=== PATIENT | male | born 1960 | race Caucasian/White ===

== ENCOUNTER 2022-09-21 20:07 | Inpatient (IN) | payer OTHER, MEDICAID ==
[~2022-09-21] VITALS: Ht 177.8 cm; Wt 77.6 kg
--- NOTE | 2022-09-21 20:07 | NUR ---
PT ESVIN ALS. TAKEN TO BED 10
[2022-09-21 20:13] VITALS: BP 135/72
[2022-09-21 20:20] VITALS: BP 135/72
--- NOTE | 2022-09-21 20:57 | NUR ---
X-Ray at bedside.
[2022-09-21 21:28] LABS: BASOPHILS % (AUTO) 0.3 % (0.0-2.0); EOSINOPHILS # (AUTO) 0.1 K/uL (0-0.4); EOSINOPHILS % (AUTO) 0.7 % (0.0-4.0); HEMATOCRIT 23.8 % (36-52); HEMOGLOBIN 7.7 g/dL (12.0-18.0); LYMPHOCYTES # (AUTO) 0.7 K/uL (2.0-11.5); LYMPHOCYTES % (AUTO) 5.4 % (20.5-51.1); MEAN CORPUSCULAR HEMOGLOBIN 30 pg (27-31); MEAN CORPUSCULAR HGB CONC 32 g/dL (33-37); MEAN CORPUSCULAR VOLUME 93.9 fL (80-94); MONOCYTES # (AUTO) 0.5 K/uL (0.8-1.0); NEUTROPHILS # (AUTO) 11.3 K/uL (1.8-7.7); NEUTROPHILS % (AUTO) 89.6 % (42.2-75.2); PLATELET COUNT (AUTO) 335 K/uL (140-450); RED BLOOD CELL COUNT(AUTO) 2.54 MIL/uL (4.20-6.10); RED CELL DISTRIBUTION WIDTH 16.4 % (11.6-13.7); WHITE BLOOD COUNT (AUTO) 12.6 K/uL (4.8-10.8)
[2022-09-21 21:42] LABS: ALBUMIN 1.6 g/dL (3.4-5.0); ANION GAP 14.1 (8-16); CARBON DIOXIDE 31.9 mmol/L (21-32); CREATININE 3.1 mg/dL (0.6-1.3); TOTAL BILIRUBIN 0.3 mg/dL (0.0-1.0)
[2022-09-21] MEDS ORDERED: CEFEPIME 1,000 MG in DEXTROSE 5% 50 ML IV ONE (21:50)
[2022-09-21] MEDS ORDERED: NACL 0.9% 1,000 ML IV ONE (21:50)
[2022-09-21] MEDS ORDERED: CEFEPIME 1,000 MG VIAL ONE (22:03)
--- NOTE | 2022-09-21 22:34 | NUR ---
YU COLLECTED AND SENT TO LAB
[2022-09-21] MEDS ORDERED: LORA-476 PO (22:52)
[2022-09-21] MEDS ORDERED: ARGI4.5P3 PO (22:52)
[2022-09-21] MEDS ORDERED: ACET-2619 GT (22:52)
--- NOTE | 2022-09-21 22:53 | NUR ---
PT CHANGED. MODERATE BROWN SOFT STOOL NOTED. NOTED PRESSURE WOUND TO COCCYX. PICTURES TAKEN.
[2022-09-21] MEDS ORDERED: [UNRECOGNIZED DRUG - CODE] OP (22:59)
[2022-09-21] MEDS ORDERED: ALPOS OP (22:59)
[2022-09-21] MEDS ORDERED: EPOE10004 IJ (22:59)
[2022-09-21] MEDS ORDERED: FERR75LI22 PO (23:00)
[2022-09-21] MEDS ORDERED: ATRN INH (23:11)
[2022-09-21] MEDS ORDERED: GLUC1VIA (23:11)
[2022-09-21] MEDS ORDERED: PRO5 PO (23:11)
[2022-09-21] MEDS ORDERED: LEVA0.6335 INH (23:11)
[2022-09-21] MEDS ORDERED: ACET-8905 PO (23:11)
[2022-09-21] MEDS ORDERED: SLIDE SUBQ (23:11)
[2022-09-21] MEDS ORDERED: INSU100V19 SQ (23:11)
[2022-09-21] MEDS ORDERED: ASCO500T95 PO (23:11)
[2022-09-21] MEDS ORDERED: MULT-1469 PO (23:11)
--- NOTE | 2022-09-21 23:27 | NUR ---
REPORT CALLED TO TY WAGNER WITH FULL RETURNED VERBAL UNDERSTANDING. PT GOING TO 108 [address]
--- NOTE | 2022-09-21 23:40 | NUR ---
PT TRANSPORTED VIA GURNEY FROM ER. PT IS CURRENTLY SLEEPING COMFORTABLY. EASILY AROUSABLE. PT IS ON TRACH TO VENT: A/C PRVC 40,450,16,6. PT HAS WOUND ON SACRAL. RIGHT BKA. 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 PT IS SATING 100%. PT HAS 22 GAUGE ON LEFT HAND SALINE LOCK. SAFETY MEASURES TAKEN. WILL CONTINUE TO MONITOR THE PT.
[2022-09-22] VITALS: BP 131/70
--- NOTE | 2022-09-22 00:03 | NUR ---
PT WAS TRANSPORTED FROM ER TO TELE VIA CARESCAPE VENT. PT TOLERATED TRANSPORT WELL. VENT PLUGGED IN RED OUTLET. AIRWAY IS PATENT, SUCTION SMALL YELLOW THICK SECRETIONS FROM TRACH. SPO2 100%
[2022-09-22 04:00] VITALS: BP 137/68
[2022-09-22] MEDS ORDERED: PIPERACILLIN/TAZOBACTAM 3.375 GM VIAL IV ONE (04:06)
[2022-09-22] MEDS: PIPERACILLIN/TAZOBACTAM 3.375 GM in DEXTROSE 5% 50 ML IV SCH ×3 (04:18→20:45)
--- NOTE | 2022-09-22 04:18 | NUR ---
SCHEDULE MEDICATION GIVEN. NO ADVERSE REACTION NOTED. PT NOT IN ANY DISTRESS.
--- NOTE | 2022-09-22 07:14 | NUR ---
ENDORSED PT TO DAY SHIFT RN FOR CONTINUITY OF CARE. PT IS STABLE.
--- NOTE | 2022-09-22 07:15 | NUR ---
receive the patient from the restaurant shift leader rn in room 108B aox1 non verbal with admitting diagnosis of sepsis . will continue to monitor .
[2022-09-22 08:00] VITALS: BP 127/53
[2022-09-22] MEDS ORDERED: LORazepam 2 MG/ML VIAL IVP PRN (08:00)
[2022-09-22] MEDS ORDERED: ZOLPIDEM 10 MG TAB PO PRN (08:00)
[2022-09-22] MEDS ORDERED: ONDANSETRON 4 MG/2 ML VIAL IVP PRN (08:00)
[2022-09-22] MEDS ORDERED: DOCUSATE SODIUM 100 MG GELCAP PO PRN (08:00)
[2022-09-22] MEDS ORDERED: MAG SULF 2000 MG/WATER PREMIX 50 ML IV PRN (08:00)
[2022-09-22] MEDS ORDERED: POTASSIUM CHLORIDE 10 MEQ TABER PO PRN (08:00)
[2022-09-22] MEDS ORDERED: ALBUTEROL 0.083% 2.5 MG/3 ML NEBU INH PRN (08:05)
--- NOTE | 2022-09-22 08:20 | NUR ---
the son came . gave the son an update regarding the patient plan of care
--- NOTE | 2022-09-22 08:54 | NUR ---
PATIENT HAS BEEN SCREENED AND CATEGORIZED HIGH NUTRITION RISK. PATIENT WILL BE SEEN WITHIN 1-2 DAYS OF ADMISSION. FNS REFERRAL RECEIVED FOR G-TUBE/OPEN WOUNDS ON 09/22/22. REVIEWED BY FLAQUITA CARREON RD
[2022-09-22 12:00] VITALS: BP 133/53
--- NOTE | 2022-09-22 12:14 | NUR ---
assess the sacral wound with Emily family specialist together with TYLER mensah. enter orders alos . noted and carried out
--- NOTE | 2022-09-22 12:27 | NUR ---
WOUND CARE EVALUATION NOTE: SKIN ASSESSMENT DONE WITH PRIMARY KRISTY TONY ON THIS 62 Y/O PT ADMITTED WITH INITIAL DX AMS. PAST MEDICAL HX INCLUDES HTN, CHF, TRACH, CHRONIC PRESSURE ULCER WOUND, G-TUBE. ALL ABOVE INFORMATION OBTAINED FROM ADMISSION H&P. PT IS AWAKE. SKIN IS WARM AND DRY, LEFT ELBOW HEALED SCAR TISSUE. [place] HEALED SCAR TISSUE. RIGHT BKA STUMP SKIN INTACT. LEFT FOOT PARTIAL AMPUTATION, HEALED SCAR. INCONTINENT OF BOWEL X1 DURING ASSESSMENT. PLAN OF CARE DISCUSSED WITH PRIMARY KRISTY TONY. INTEGUMENTARY: -ORAL MEMBRANE PINK INTACT, LIPS, CHEEKS SKIN DRY, NO OPEN WOUNDS -TRACH SITE KAREN STOMA SKIN DRY AND CLEAN. SKIN INTACT. -GT SITE KAREN STOMA WITH SKIN INTACT. -ABDOMEN DISTENDED, SOFT. -PRESSURE ULCER INJURY STAGE 4 TO SACROCOCCYX 8X4X1.5CM, UNDERMINING 3 OCLOCK 0.5CM AND 9 OCLOCK 1.2CM. WOUND BED 100% RED GRANULATION TISSUE, MUSCLE OBSERVED. WOUND EDGE FLAT, KAREN-WOUND SKIN MOIST AND PINK.SMALL AMOUNT SEROUSSANGENOUS DRAINAGE, NO ODOR, PAIN 0/10. RECOMMENDATIONS: -APPLY HYDRAGUARD TO R/L GROINS EXTENDED TO KAREN-ANAL BID AND PRN IF SOILING - CLEANSE SACRALCOCCYX WITH WOUND CLEANSING SOLUTION PAT DRY AND APPLY ALGINATE DRESSING COVER WITH ABD PAD DRESSING SECURE WITH TAPE QD AND PRN IF SOILING -APPLY FOAM DRESSING TO ELBOWS,HIPS AND STUMPS Q3 DAYS AND PRN IF SOILING PREVENTION -POSITIONING: TURN AND REPOSITION PATIENT Q 2H OR SOONER USE PILLOWS TO KEEP BONY PROMINENCES FROM DIRECT CONTACT WITH SURFACES USE REPOSITIONING WEDGES TO PROVIDE 30-DEGREE ANGLE FOR SIDE LYING POSITIONS OFFLOADING OR FOAM DRESSING TO ALL TUBING TO PREVENT MEDICAL DEVICES RELATED PRESSURE INJURY -RE-EVALUATING AND MANAGING INCONTINENCE MONITOR SKIN CONDITION DURING POSITION CHANGE DO NOT MASSAGE REDNESS, BONY PROMINENCES FREQUENT KAREN-CARE AND PROVIDE BARRIER CREAMS PRN IF SOILING MOISTURE CONTROL BY OFFER BED CAPONE/URINAL /ABSORBENT PAD TO WICK AND HOLD MOISTURE, KEEP SKIN DRY AND PROTECT FROM FRICTION -MANAGE FRICTION/SHEAR/MOBILITY KEEP HOB AT THE LOWEST LEVEL OF ELEVATION NO MORE THAN 30 DEGREES UNLESS OTHERWISE CONTRAINDICATED USE LIFT SHEET OR TRANSFER DEVICE TO MOVE PATIENT AND PREVENT LATERAL SHEER. CONSIDER TRAPEZE IF APPROPRIATE PROTECT HEELS, ELBOWS BONY PROMINENCES WITH SKIN BERRIES OR FOAM DRESSING IF EXPOSED TO FRICTION OFFLOAD BILATERAL HEELS BY PLACING PILLOWS UNDER CALVES AT ALL TIMES, UNLESS OTHERWISE CONTRAINDICATED -PRESSURE REDISTRIBUTION SURFACE THERAPY SARAH ISOFLEX MARY GRACE MATTRESS -NUTRITION: PLEASE FOLLOW RD RECOMMENDATIONS AND OFFER NUTRITION SUPPLEMENTS IF ORDERED. PLEASE CONTACT WOUND CARE NURSE FOR ANY QUESTION AND CHANGE OF WOUND CONDITION.
[2022-09-22] MEDS ORDERED: FOAM DRESSING TP PRN (13:30)
[2022-09-22] MEDS ORDERED: ALGINATE DRESSING MC PRN (13:30)
[2022-09-22] MEDS: HYDRAGUARD CREAM TP SCH (15:09)
[2022-09-22] MEDS: FOAM DRESSING TP SCH (15:09)
--- NOTE | 2022-09-22 15:58 | NUR ---
DC PLANNING ASSESSMENT COMPLETE PLEASE REFER TO ASSESSMENT FOR ADDITIONAL DETAILS MARQUEZ ROBERSON DC PLAN IS FOR PT TO RETURN [facility] WHEN MEDICALLY STABLE Addendum: 09/22/22 at 1558 by Hilaria ARMANDO Amended: Links added.
[2022-09-22] MEDS: ACETAMINOPHEN 325 MG TAB PO PRN (16:27)
--- NOTE | 2022-09-22 16:30 | NUR ---
patient has a temperature 101.1 . acetaminophen was given . cooling measures will also be applied . will continue to monitor .
--- NOTE | 2022-09-22 17:05 | NUR ---
09/22/22 RD INITIAL ASSESSMENT COMPLETED PLEASE REFER TO NUTRITION ASSESSMENT UNDER CARE ACTIVITY FOR ESTIMATED NUTRITIONAL NEEDS. 1. MONITOR NPO STATUS 2. WHEN/IF MEDICALLY APPROPRIATE TO START TF, RECOMMEND NEPRO 1.8 AT GOAL RATE 50 ML/HR, FWF 150 ML Q4H TOLERATED - PROVIDES 1200 ML TOTAL VOLUME, 2160 KCAL, 97 GM PROTEIN AND 1772 ML FREE WATER DAILY MEETING 96% ESTIMATED KCAL NEEDS AND 100% ESTIMATED PROTEIN NEEDS; ADEQUATE - START TF AT 2O ML/HR INCREASE BY 2O ML Q4H UNTIL GOAL IS REACHED TOLERATED 3. MONITOR GI SYMPTOMS, GASTRIC RESIDUALS AND NUTRITION RELATED LAB VALUES 4. CONSULT RD PRN 5. RD TO FOLLOW-UP 2-3 DAYS, HIGH RISK REVIEWED BY FLAQUITA CARREON RD
[2022-09-22] MEDS: EPOETIN ALFA-EPBX 4,000 UNITS/ML VIAL SUBQ SCH (18:32)
--- NOTE | 2022-09-22 19:03 | NUR ---
will endorse to nurse office rn for continuity of care for crdiac , pulmonary consult , monitor electrolytes , and antibiotics
--- NOTE | 2022-09-22 19:30 | NUR ---
RECEIVED REPORT FROM DAY SHIFT RN FOR CONTINUITY OF CARE. PT IS RESTING IN BED NOT IN ANY DISTRESS. PT IS TRACH TO VENT SETTIN, 450,16,6. SATING 97%. PT HAS 22 GAUGE ON LEFT HAND SALINE LOCK. PT HAS GTUBE AND NPO AT THIS TIME. SAFETY MEASURES TAKEN. WILL CONTINUE TO MONITOR THE PT.
[2022-09-22 20:00] VITALS: BP 126/69
[2022-09-23] VITALS: BP 114/68
--- NOTE | 2022-09-23 00:30 | NUR ---
PT WAS CLEANED AND CHANGED. TOLERATED IT WELL. WILL CONTINUE TO MONITOR.
[2022-09-23] MEDS: HYDRAGUARD CREAM TP SCH ×2 (01:19→12:16)
[2022-09-23 04:00] VITALS: BP 150/76
[2022-09-23] MEDS: PIPERACILLIN/TAZOBACTAM 3.375 GM in DEXTROSE 5% 50 ML IV SCH ×3 (04:23→20:26)
[2022-09-23 07:14] LABS: BASOPHILS # (AUTO) 0.1 K/uL (0.00-0.22); BASOPHILS % (AUTO) 0.7 % (0.0-2.0); EOSINOPHILS # (AUTO) 0.3 K/uL (0-0.4); EOSINOPHILS % (AUTO) 3.5 % (0.0-4.0); HEMATOCRIT 23.8 % (36-52); HEMOGLOBIN 7.7 g/dL (12.0-18.0); LYMPHOCYTES # (AUTO) 1.3 K/uL (2.0-11.5); LYMPHOCYTES % (AUTO) 17.2 % (20.5-51.1); MEAN CORPUSCULAR HEMOGLOBIN 31 pg (27-31); MEAN CORPUSCULAR HGB CONC 32 g/dL (33-37); MEAN CORPUSCULAR VOLUME 95.2 fL (80-94); MONOCYTES # (AUTO) 0.4 K/uL (0.8-1.0); MONOCYTES % (AUTO) 5.5 % (1.7-9.3); NEUTROPHILS # (AUTO) 5.6 K/uL (1.8-7.7); NEUTROPHILS % (AUTO) 73.1 % (42.2-75.2); PLATELET COUNT (AUTO) 304 K/uL (140-450); RED CELL DISTRIBUTION WIDTH 16.5 % (11.6-13.7); WHITE BLOOD COUNT (AUTO) 7.7 K/uL (4.8-10.8)
--- NOTE | 2022-09-23 07:15 | NUR ---
ENDORSED PT TO DAY SHIFT RN FOR CONTINUITY OF CARE. PT IS STABLE.
--- NOTE | 2022-09-23 07:27 | NUR ---
receive the patinet from the blow pit operator mariama Luna in rm 108B aox1 non verbal . with admitting diagnosis of sepsis . still for antibiotics therapy . wound management . will continue to monitor
[2022-09-23 07:29] LABS: ANION GAP 17.6 (8-16); CARBON DIOXIDE 28.7 mmol/L (21-32); CREATININE 3.7 mg/dL (0.6-1.3); POTASSIUM 4.3 mmol/L (3.5-5.1)
[2022-09-23 08:00] VITALS: BP 139/71
--- NOTE | 2022-09-23 10:26 | NUR ---
the son came and made a visit to the patient . requested for the respiratory therapist .
[2022-09-23 12:00] VITALS: BP 143/72
[2022-09-23] MEDS: ALGINATE DRESSING MC SCH (12:15)
--- NOTE | 2022-09-23 15:31 | NUR ---
SENIOR OFFICE ASSISTANT SPOKE WITH THE PATIENTS BROTHER AND SON AT BEDSIDE REGARDING REQUEST FOR TRANSFER TO [facility]. THE PATIENT HAS BEEN AT [place] IN THE PAST UNDER THE CARE OF HIS PCP RIMA BROWN. RE-ITERATED PROCESS FOR TRANSFER INCLUDING FAMILY RESPONSIBILITY FOR TRANSPORT, FAMILY WANT TO MOVE AHEAD WITH ARRANGEMENTS. SPOKE WITH DR LAUGHLIN, ORDER RECEIVED, CLINICALS AND ORDER FAXED TO THE [facility]. Addendum: 09/23/22 at 1701 by Mary Jo Li CM SPOKE WITH DELLA AT [facility], SHE WILL REACH OUT TO DR RIMA BROWN TO CONFIRM THAT HE'S ACCEPTING THE PATIENT. TRACH/VENT PATIENTS REQUIRE ICU LOC AT [facility], NO ICU BEDS AT THIS TIME. [facility] UNABLE TO ACCEPT UNTIL AUTHORIZATION FROM PATIENTS INSURANCE IS RECEIVED. Addendum: 09/24/22 at 1021 by Mary Jo Li CM SENIOR OFFICE ASSISTANT FAXED CLINICAL PACKET TO [facility] FOR REVIEW FOR AUTHORIZATION TO TRANSFER TO [facility] PER FAMILY REQUEST. FOLLOWED UP WITH DELLA AT [facility] WHO STATES AUTHORIZATION IS NEEDED BEFORE FACILITY CAN ACCEPT THE PATIENT. Addendum: 09/24/22 at 1444 by Mary Jo Li SENIOR OFFICE ASSISTANT RECEIVED A CALL FROM [facility], AFTER REVIEW OF THE PATIENT RECORDS THE HOSPITALIST HAS DECLINED TRANSFER FOR LACK OF MEDICAL NECESSITY. SENIOR OFFICE ASSISTANT SPOKE WITH THE PATIENTS SON MARQUEZ TO INFORM HIM OF THE DECISION.
--- NOTE | 2022-09-23 15:50 | NUR ---
md pfeiffer made an order to be transferred to [facility] due to family request due to the fact that all the patient records are in this hospital . the son made aware
[2022-09-23 16:00] VITALS: BP 138/71
--- NOTE | 2022-09-23 17:38 | NUR ---
RECEIVED PT ON CARESCAPE VENT IN PRVC MODE. SETTINGS ARE RATE 16, Vt 450, FiO2 28%,AND PEEP OF 6. VENT PLUGGED IN RED OUTLET. PT AIRWAY IS PATENT AND SUCTION LYNCH & HME CHANGED. SUCTIONED SMALL TO MODERATE YELLOW-BLOOD TINGED THICK SECRETIONS FROM TRACH. TRACH CARE WAS DONE TWICE DUE TO THICK YELLOW SECETIONS COMING OUT OF STOMA. SPO2 100%
--- NOTE | 2022-09-23 19:02 | NUR ---
will endorse to hourly shift rn for continuity of care . for transfer to [facility] as per family request
[2022-09-23 20:00] VITALS: BP 149/74
--- NOTE | 2022-09-23 21:00 | NUR ---
MESSAGED DR. LAUGHLIN FOR FEEDING ORDERS. ORDERS GIVEN. PT WAS STARTED ON GTUBE FEEDING.
--- NOTE | 2022-09-23 22:00 | NUR ---
SON CALLED. WAS UPDATED ON PT. ALL QUESTIONS ANSWERED.
[2022-09-23] MEDS: MORPHINE SULFATE 2 MG/ML SYR IVP PRN (22:33)
[2022-09-24] VITALS: BP 119/72
--- NOTE | 2022-09-24 00:37 | NUR ---
PT WAS YELLING OUT FOR HELP. ASSESSED PT. PT DENIES ANY PAIN BUT FELT ANXIOUS. ASKED HIM IF HE WANTED SOMETHIGN FOR ANXIETY. PT NODDED YES. ATIVAN WAS GIVEN.
[2022-09-24] MEDS: HYDRAGUARD CREAM TP SCH ×2 (01:09→13:00)
[2022-09-24 04:00] VITALS: BP 109/60
[2022-09-24] MEDS: PIPERACILLIN/TAZOBACTAM 3.375 GM in DEXTROSE 5% 50 ML IV SCH ×3 (04:08→21:00)
--- NOTE | 2022-09-24 04:12 | NUR ---
VISS. SCHEDULE MEDICATION GIVEN. NO ADVERSE REACTION NOTED. WILL CONTINUE TO MONITOR THE PT.
[2022-09-24] MEDS: MORPHINE SULFATE 2 MG/ML SYR IVP PRN (05:06)
--- NOTE | 2022-09-24 07:03 | NUR ---
ENDORSED PT TO DAY SHIFT RN FOR CONTINUITY OF CARE. PT IS STABLE.
[2022-09-24 07:36] LABS: BASOPHILS # (AUTO) 0.1 K/uL (0.00-0.22); BASOPHILS % (AUTO) 1.2 % (0.0-2.0); EOSINOPHILS # (AUTO) 0.4 K/uL (0-0.4); EOSINOPHILS % (AUTO) 4.1 % (0.0-4.0); HEMATOCRIT 22.6 % (36-52); HEMOGLOBIN 7.3 g/dL (12.0-18.0); LYMPHOCYTES # (AUTO) 1.4 K/uL (2.0-11.5); LYMPHOCYTES % (AUTO) 16.1 % (20.5-51.1); MEAN CORPUSCULAR HEMOGLOBIN 31 pg (27-31); MEAN CORPUSCULAR HGB CONC 32 g/dL (33-37); MEAN CORPUSCULAR VOLUME 94.9 fL (80-94); MONOCYTES # (AUTO) 0.6 K/uL (0.8-1.0); MONOCYTES % (AUTO) 6.5 % (1.7-9.3); NEUTROPHILS # (AUTO) 6.3 K/uL (1.8-7.7); NEUTROPHILS % (AUTO) 72.1 % (42.2-75.2); PLATELET COUNT (AUTO) 285 K/uL (140-450); RED BLOOD CELL COUNT(AUTO) 2.38 MIL/uL (4.20-6.10); RED CELL DISTRIBUTION WIDTH 16.3 % (11.6-13.7); WHITE BLOOD COUNT (AUTO) 8.7 K/uL (4.8-10.8)
[2022-09-24 07:54] LABS: CREATININE 3.9 mg/dL (0.6-1.3)
[2022-09-24 08:00] VITALS: BP 116/57
[2022-09-24 12:00] VITALS: BP 140/67
[2022-09-24] MEDS: ALGINATE DRESSING MC SCH (13:00)
--- NOTE | 2022-09-24 14:14 | NUR ---
PATIENT'S GRANDDAUGHTER HERE, AND NURSE CLARIFY THAT PATIENT NORMAL USE DENTURE IN HOME, DOESN'T OWN CELL-PHONE, CAREGIVER IS CALVIN WHO COOKS FOR PATIENT DAILY, PATIENT IS [place], AND LACTOSE INTOLERANCE. WILL CONTINUE TO MONITOR Addendum: 09/25/22 at 1510 by Milagro Pandey RN WRONG PATIENT
[2022-09-24 16:00] VITALS: BP 153/73
--- NOTE | 2022-09-24 19:23 | NUR ---
ENDORSE PATIENT TO PM SHIFT NURSE WHILE PATIENT REST IN BED ON G-TUBE NEPRO @50ML/HR WITH WATER FLUSH 150ML Q4HR, WOUND CARE FOR SACRAL-COCCYX DONE
--- NOTE | 2022-09-24 19:43 | NUR ---
09/24/22 RD FOLLOW UP COMPLETED.PLEASE REFER TO NUTRITION ASSESSMENT UNDER CARE ACTIVITY FOR ESTIMATED NUTRITIONAL NEEDS. 1. CONTINUE NEPRO 1.8 AT 50 ML/HR; FWF 150 ML Q4H TOLERATED - PROVIDES 1200 ML TOTAL VOLUME, 2160 KCAL, 97 GM PROTEIN AND 1772 ML FREE WATER DAILY MEETING 96%ESTIMATED KCAL NEEDS AND 100% ESTIMATED PROTEIN NEEDS; ADEQUATE 2. MONITOR GI SYMPTOMS & GASTRIC RESIDUALS 3. RD TO FOLLOW-UP IN 2-3 DAYS PATIENT IS HIGH RISK. SACHI MOSCOSO RD
[2022-09-24 20:00] VITALS: BP 134/71
--- NOTE | 2022-09-24 20:00 | NUR ---
RECEIVED REPORT FROM DAY SHIFT RN FOR CONTINUITY OF CARE. PT IS RESTING IN BED NOT IN ANY DISTRESS.PT AT BEDSIDE, PT IS TRACH TO VENT 28% FIO2, SATING 99%. PT HAS 22 GAUGE ON LEFT HAND SALINE LOCK. PT HAS GTUBE RUNNING NEPRO AT 50MLS/HR RESIDUALS NOTED..ALL SAFETY MEASURES IN PLACE. WILL CONTINUE TO MONITOR THE PT.
--- NOTE | 2022-09-24 21:00 | NUR ---
SCHEDULED MEDICATIONS GIVEN. PT TOLERATED WELL. WILL CONTINUE TO MONITOR.
[2022-09-24] MEDS: ACETAMINOPHEN 325 MG TAB PO PRN (23:46)
[2022-09-25] VITALS: BP 143/78
--- NOTE | 2022-09-25 | NUR ---
PT HAS A FEVER 101. PRN TYLENOL AND COOLING MEASURES GIVEN. ALL PRECAUTIONS IN PLACE. CALL LIGHT WITHIN REACH. WILL CONTINUE TO MONITOR.
--- NOTE | 2022-09-25 01:00 | NUR ---
Rechecked patients temperature 98.0.
[2022-09-25] MEDS: HYDRAGUARD CREAM TP SCH ×2 (01:14→13:23)
[2022-09-25 04:00] VITALS: BP 153/73
--- NOTE | 2022-09-25 04:00 | NUR ---
Pt had a large bowel movement. Pt cleaned and repositioned. Wound care done. Pt tolerated well. All precautions in place. Will coniine to monitor.
[2022-09-25] MEDS ORDERED: PIPERACILLIN/TAZOBACTAM 3.375 GM VIAL IV ONE (04:44)
[2022-09-25] MEDS: PIPERACILLIN/TAZOBACTAM 3.375 GM in DEXTROSE 5% 50 ML IV SCH (04:52)
--- NOTE | 2022-09-25 05:30 | NUR ---
SCHEDULED MEDICATIONS GIVEN. PT TOLERATED WELL. WILL CONTINUE TO MONITOR.
[2022-09-25 07:13] LABS: BASOPHILS # (AUTO) 0.1 K/uL (0.00-0.22); BASOPHILS % (AUTO) 0.9 % (0.0-2.0); EOSINOPHILS # (AUTO) 0.3 K/uL (0-0.4); EOSINOPHILS % (AUTO) 2.9 % (0.0-4.0); HEMATOCRIT 22.1 % (36-52); HEMOGLOBIN 7.2 g/dL (12.0-18.0); LYMPHOCYTES # (AUTO) 1.8 K/uL (2.0-11.5); LYMPHOCYTES % (AUTO) 18.9 % (20.5-51.1); MEAN CORPUSCULAR HEMOGLOBIN 31 pg (27-31); MEAN CORPUSCULAR HGB CONC 33 g/dL (33-37); MEAN CORPUSCULAR VOLUME 95.4 fL (80-94); MONOCYTES # (AUTO) 0.5 K/uL (0.8-1.0); MONOCYTES % (AUTO) 5.4 % (1.7-9.3); NEUTROPHILS # (AUTO) 6.9 K/uL (1.8-7.7); NEUTROPHILS % (AUTO) 71.9 % (42.2-75.2); PLATELET COUNT (AUTO) 282 K/uL (140-450); RED BLOOD CELL COUNT(AUTO) 2.32 MIL/uL (4.20-6.10); RED CELL DISTRIBUTION WIDTH 16.2 % (11.6-13.7); WHITE BLOOD COUNT (AUTO) 9.6 K/uL (4.8-10.8)
[2022-09-25 07:17] LABS: ANION GAP 18.3 (8-16); CARBON DIOXIDE 26.4 mmol/L (21-32); POTASSIUM 3.7 mmol/L (3.5-5.1)
--- NOTE | 2022-09-25 07:21 | NUR ---
ENDORSED TO DAY SHIFT NURSE FOR CONTINUITY OF CARE. PT IS STABLE.
[2022-09-25 07:42] LABS: CREATININE 4.1 mg/dL (0.6-1.3)
[2022-09-25 08:00] VITALS: BP 137/66
[2022-09-25] MEDS: EPOETIN ALFA-EPBX 4,000 UNITS/ML VIAL SUBQ SCH (09:22)
[2022-09-25] MEDS: FOAM DRESSING TP SCH (09:22)
[2022-09-25 12:00] VITALS: BP 112/62
[2022-09-25] MEDS: PIPERACILLIN/TAZOBACTAM 2.25 GM in DEXTROSE 5% 50 ML IV SCH ×2 (13:22→20:24)
[2022-09-25] MEDS: ALGINATE DRESSING MC SCH (13:22)
--- NOTE | 2022-09-25 15:11 | NUR ---
DIALYSIS DONE ORDERED, 2 LITER REMOVE. PATIENT TOLERATE PROCEDURE. WILL CONTINUE TO MONITOR
[2022-09-25 16:00] VITALS: BP 128/60
--- NOTE | 2022-09-25 17:19 | NUR ---
DC PLANNIN YRS OLD MALE PATIENT WAS ADMITTED FROM [facility] WITH A DX OF SEPSIS. PATIENT HAS A HX OF TRACH TO VENT, CHRONIC RESP FAILURE , CHR, HTN AND RT BKA. ADMINISTERED IVF IV ABX ZOSYN AND CONTINUED HOME MEDS. SEEN WITH CARDIO, PULMO AND NEPHRO. SAURABH SPOKE WITH PT'S SON MARQUEZ REQUESTING HIS FATHER TO BE TRANSFERRED TO [facility]. CM CALLED [facility] SPOKE WITH [facility] COORDINATOR STATED NO BED AVAILABLE AT THIS TIME AND MOST LIKELY WON'T ACCEPT FOR FAMILY REQUEST. SAURABH DISCUSSED THE ISSUES AND CONCERNS THAT NO MEDICATIONS RECONCILED AND PATIENT DIDN'T GET HIS ROUTINE MEDS. SAURABH SPOKE WITH MD AND PRIMARY RN. PROBLEM SOLVED AND PT'S SON AGREED FOR HIS DAD TO STAY AT [facility]. CM TO FOLLOW Addendum: 09/27/22 at 1733 by Azra Soto RN DC PLANNING: SAURABH SPOKE WITH PT'S SON STATED NOT TO GIVE ANY INFORMATION FOR PT'S SISTER , SHE CAN VISIT BUT CAN NOT GET ANY INFORMATION EXCEPT HIS BROTHER GIRISH AND PT'S BROTHER JAROD NIÑO. SAURABH INFORMED PRIMARY RN YUE AND CHARGE NURSE MILDRED. SEEN BY CARDIO AND PULMO, S/P TRACH CHAGED TODAY BY RT, CONTINUED IV ABX ZOSYN. CM TO FOLLOW
--- NOTE | 2022-09-25 19:28 | NUR ---
ENDORSE PATIENT IN STABLE CONDITION TO PM SHIFT NURSE WHILE T-BE FEEDING INFUSING NEPRO @50ML/HR WITH WATER FLUSHING 150ML Q4HR, PATIENT ON UHWLS-WS-PTYL A/V PRVC FIO2 28%; DIALYSIS DOWN TODAY AND 2 LITER REMOVE. PATIENT IS ON ISOLATION FOR C.DIFF AND ACINETOBACTER BAUMANNII POSITIVE IN SPUTUM
--- NOTE | 2022-09-25 19:30 | NUR ---
RECEIVED PATIENT IN BED NON VERBAL, TRACH TO VENT SATING AT 98%. NO SON NOTED. IV ACCESS TO LEFT HAND SALINE LOCK. TUBE FEEDING NEPRO AT 50 ML/HR. ALL SAFETY PRECAUTIONS ARE IN PLACE. FLACC 0. PLACED CALL LIGHT WITHIN REACH. ON CONTACT ISOLATION FOR C-DIFF AND SPUTUM. WILL CONTINUE TO MONITOR PT.
[2022-09-25 20:00] VITALS: BP 135/54
--- NOTE | 2022-09-25 20:24 | NUR ---
ZOSYN ADMINISTERED ORDERED.
--- NOTE | 2022-09-25 20:37 | NUR ---
SUCTIONED SECRETIONS NEEDED.
[2022-09-26] VITALS (7 sets, daily range): BP systolic 100–147; BP diastolic 64–77
[2022-09-26] MEDS: HYDRAGUARD CREAM TP SCH ×2 (01:07→13:00)
--- NOTE | 2022-09-26 04:05 | NUR ---
trach tie and gauze changed.pt has lg amts of copious secretions from trach stoma. air added to cuff
[2022-09-26] MEDS: PIPERACILLIN/TAZOBACTAM 2.25 GM in DEXTROSE 5% 50 ML IV SCH ×3 (05:00→21:04)
--- NOTE | 2022-09-26 07:21 | NUR ---
ENDORSED PATIENT TO DAY SHIFT NURSE FOR CONTINUITY OF CARE.
[2022-09-26 07:25] LABS: BASOPHILS % (AUTO) 0.4 % (0.0-2.0); EOSINOPHILS # (AUTO) 0.1 K/uL (0-0.4); HEMATOCRIT 22.6 % (36-52); HEMOGLOBIN 7.4 g/dL (12.0-18.0); LYMPHOCYTES # (AUTO) 1.2 K/uL (2.0-11.5); LYMPHOCYTES % (AUTO) 12.6 % (20.5-51.1); MEAN CORPUSCULAR HEMOGLOBIN 31 pg (27-31); MEAN CORPUSCULAR HGB CONC 33 g/dL (33-37); MEAN CORPUSCULAR VOLUME 95.6 fL (80-94); MONOCYTES # (AUTO) 0.5 K/uL (0.8-1.0); MONOCYTES % (AUTO) 5.1 % (1.7-9.3); NEUTROPHILS # (AUTO) 7.9 K/uL (1.8-7.7); NEUTROPHILS % (AUTO) 80.9 % (42.2-75.2); PLATELET COUNT (AUTO) 261 K/uL (140-450); RED BLOOD CELL COUNT(AUTO) 2.37 MIL/uL (4.20-6.10); RED CELL DISTRIBUTION WIDTH 15.8 % (11.6-13.7); WHITE BLOOD COUNT (AUTO) 9.8 K/uL (4.8-10.8)
--- NOTE | 2022-09-26 07:35 | NUR ---
GOT REPORT FROM THE NIGHT NURSE,PT IS AWAKE NO SOB. [id number]
[2022-09-26 07:42] LABS: ANION GAP 11.8 (8-16); CARBON DIOXIDE 31.7 mmol/L (21-32); CREATININE 2.6 mg/dL (0.6-1.3); POTASSIUM 3.5 mmol/L (3.5-5.1)
--- NOTE | 2022-09-26 08:00 | NUR ---
PT SUCTIONED AND REMOVED LARGE AMOUNT OF SPUTUM. PT THREW UP. NURSE WAS NOTIFIED WHO GAVE ZOFRAN FOR NAUSEA. TRACH CARE WAS DONE AND TRACH LYNCH, HME, OMNIFLEX, AND TUBING WERE CHANGED. PT WAS RESTING COMFORTABLY. WILL CONTINUE TO MONITOR PT CAREFULLY.
--- NOTE | 2022-09-26 08:31 | NUR ---
PT VOMITED THE RESIDUAL CHECKED FOR FEEDING HAS ONLY 10CC, ZOFRAN GIVEN IV ORDERED CLEANED HIM UP FOR COMFORT.[email or web address]
--- NOTE | 2022-09-26 09:52 | NUR ---
GOT REPORT FROM ER NURSE , PT REORIENTED TO HER ROOM, ASSESSMENT IS DONE.[email or web address]
[2022-09-26] MEDS ORDERED: SCOPOLAMINE 1.5 MG/72 HR PATCH TD SCH (10:15)
--- NOTE | 2022-09-26 10:42 | NUR ---
SCOPOLAMINE TRANSDERMAL APPLIED TO LEFT UPPER ARM JUST BELOW THE SHOULDER.[email or web address]
[2022-09-26] MEDS: ALGINATE DRESSING MC SCH (13:00)
--- NOTE | 2022-09-26 16:22 | NUR ---
09/26/22 RD FOLLOW UP COMPLETED PLEASE REFER TO NUTRITION ASSESSMENT UNDER CARE ACTIVITY FOR ESTIMATED NUTRITIONAL NEEDS. 1. CONTINUE NEPRO 1.8 AT 50 ML/HR; FWF 150 ML Q4H TOLERATED -RECOMMEND RASHEL BID FOR WOUND SUPPORT (PROVIDES 160 KCAL AND 5 GM PROTEIN DAILY) - WITH RASHEL BID, PROVIDES 1200 ML TOTAL VOLUME, 2320 KCAL, 102 GM PROTEIN AND 1772 ML FREE WATER DAILY MEETING 100% ESTIMATED KCAL AND PROTEIN NEEDS; ADEQUATE 2. MONITOR GI SYMPTOMS & GASTRIC RESIDUALS 3. RD TO FOLLOW-UP 3-5 DAYS, MODERATE RISK REVIEWED BY FLAQUITA CARREON RD
--- NOTE | 2022-09-26 17:09 | NUR ---
5000U HEPARIN X2 HANDED TO DIALYSIS NURSE.[email or web address]
--- NOTE | 2022-09-26 19:39 | NUR ---
GAVE REPORT TO THE NIGHT NURSE, PT FINISHED DAIYLISIS, 0 [email or web address]
--- NOTE | 2022-09-26 19:40 | NUR ---
RECEIVED PATIENT WITH EYES OPEN NON VERBAL TRACH TO VENT. NO S/S OF RESPIRATORY DISTRESS. TUBE FEEDING NEPRO RUNNING 50 ML/HR TOLERATING WELL. IV SITE TO LEFT HAND SALINE LOCK. SAFETY MEASURES IN PLACE. BED WHEELS LOCKED. HEAD OF BED ELEVATED. CALL LIGHT PLACED ON EASY REACH.
--- NOTE | 2022-09-26 21:04 | NUR ---
ZOSYN ADMINISTERED ORDERED.
[2022-09-27] VITALS (7 sets, daily range): BP systolic 95–119; BP diastolic 53–70
[2022-09-27] MEDS: HYDRAGUARD CREAM TP SCH ×2 (01:19→13:00)
[2022-09-27] MEDS: PIPERACILLIN/TAZOBACTAM 2.25 GM in DEXTROSE 5% 50 ML IV SCH ×3 (04:37→21:36)
--- NOTE | 2022-09-27 06:43 | NUR ---
PATIENT NEEDS ATTENDED THROUGHOUT THE SHIFT.
[2022-09-27 07:02] LABS: BASOPHILS # (AUTO) 0.1 K/uL (0.00-0.22); BASOPHILS % (AUTO) 0.5 % (0.0-2.0); EOSINOPHILS # (AUTO) 0.1 K/uL (0-0.4); EOSINOPHILS % (AUTO) 0.8 % (0.0-4.0); HEMOGLOBIN 7.2 g/dL (12.0-18.0); LYMPHOCYTES # (AUTO) 1.4 K/uL (2.0-11.5); LYMPHOCYTES % (AUTO) 12.6 % (20.5-51.1); MEAN CORPUSCULAR HEMOGLOBIN 32 pg (27-31); MEAN CORPUSCULAR HGB CONC 33 g/dL (33-37); MEAN CORPUSCULAR VOLUME 96.4 fL (80-94); MONOCYTES # (AUTO) 0.5 K/uL (0.8-1.0); MONOCYTES % (AUTO) 4.6 % (1.7-9.3); NEUTROPHILS # (AUTO) 8.9 K/uL (1.8-7.7); NEUTROPHILS % (AUTO) 81.5 % (42.2-75.2); PLATELET COUNT (AUTO) 239 K/uL (140-450); RED BLOOD CELL COUNT(AUTO) 2.28 MIL/uL (4.20-6.10); RED CELL DISTRIBUTION WIDTH 16.3 % (11.6-13.7); WHITE BLOOD COUNT (AUTO) 10.9 K/uL (4.8-10.8)
--- NOTE | 2022-09-27 07:12 | NUR ---
ENDORSED TO AM NURSE SHIFT FOR CONTINUITY OF CARE.
--- NOTE | 2022-09-27 07:19 | NUR ---
GOT REPORT FROM THE NIGHT NURSE, PT SLEEPING NOTICE SECTION SOUND RT TO SUCTION.[email or web address]
[2022-09-27 07:46] LABS: ANION GAP 11.8 (8-16); CARBON DIOXIDE 30.9 mmol/L (21-32); CREATININE 2.2 mg/dL (0.6-1.3); POTASSIUM 3.7 mmol/L (3.5-5.1)
[2022-09-27] MEDS: ACETAMINOPHEN 325 MG TAB PO PRN (08:56)
--- NOTE | 2022-09-27 08:57 | NUR ---
GIVEN TYLENOL ORDERED FOR TEMP 100.9 [email or web address]
--- NOTE | 2022-09-27 11:00 | NUR ---
TRACH CHANGED. RT PETER AT BEDSIDE WITH ASSIST. NO COMPLICATIONS AT THIS TIME. NO SIGNS OF RESPIRATORY DISTRESS NOTED. VENT ALARMS SET AND AUDIBLE. WILL CONTINUE TO MONITOR PT.
[2022-09-27] MEDS ORDERED: GLYCOPYRROLATE 1 MG TAB PO SCH (11:30)
[2022-09-27] MEDS: GLYCOPYRROLATE 1 MG TAB GT SCH ×2 (12:13→17:12)
[2022-09-27] MEDS: ALGINATE DRESSING MC SCH (13:00)
--- NOTE | 2022-09-27 15:23 | NUR ---
SISTER AT BED SIDE PT IS SLEEPING . FEEDING INFUSING.[email or web address]
--- NOTE | 2022-09-27 17:44 | NUR ---
HELD THE FEEDING THE RESIDUAL IS 130. WILL RESUME AFTER AN HOUR.[email or web address]
--- NOTE | 2022-09-27 18:31 | NUR ---
PT SLEEPING NOW AFTER POSITIONED, TEMP HERE IS 98.. AXILLARY.[email or web address]
--- NOTE | 2022-09-27 19:31 | NUR ---
GAVE REPORT TO THE NIGHT NURSE, OFF THE SHIFT.[email or web address]
--- NOTE | 2022-09-27 19:32 | NUR ---
RECEIVED ENDORSEMENT FROM DAY SHIFT NURSE FOR CONTINUITY OF CARE. T IS ON BED, BED BOUND AND IS ON TRACH TO VENT. PT IS AWAKE ORIENTED X 2. PT IS RIGHT BELOW THE KNEE. PT IS ON GTUBE FEEDING. IV SITE LEFT HAND 22G INTACT AND PATENT. RL CATH FOR DIALYSIS IS AT RIGHT UPPER CHEST, INTACT.
--- NOTE | 2022-09-27 22:00 | NUR ---
PT IS ASLEEP AND IS ON STABLE CONDITION. FIO2 = 28, CU=490, PEEP = 6.
[2022-09-28] VITALS: BP 102/58
--- NOTE | 2022-09-28 00:30 | NUR ---
PT IS ASLEEP BUT AROUSABLE ON STIMULI.
[2022-09-28] MEDS: HYDRAGUARD CREAM TP SCH (01:00)
[2022-09-28 04:00] VITALS: BP 102/64
--- NOTE | 2022-09-28 04:09 | NUR ---
PT IS ASLEEP. NO SOB OR DISTRESS, NO FACIAL GRIMACING.
[2022-09-28] MEDS: PIPERACILLIN/TAZOBACTAM 2.25 GM in DEXTROSE 5% 50 ML IV SCH ×2 (05:08→11:23)
[2022-09-28] MEDS: GLYCOPYRROLATE 1 MG TAB GT SCH ×2 (07:03→13:08)
--- NOTE | 2022-09-28 07:15 | NUR ---
PT IS ON STABLE CONDITION, NO SOB OR DISTRESS. NO FACIAL GRIMACING NOTED. SAFETY MEASURES ARE IN PLACE. ENDORSED TO DAY SHIFT NURSE YUE FOR CONTINUITY OF CARE.
--- NOTE | 2022-09-28 07:50 | NUR ---
got report from the night nurse, pt is awake no sob.[email or web address]
[2022-09-28 08:00] VITALS: BP 111/63
[2022-09-28] MEDS ORDERED: EPOETIN ALFA-EPBX 10,000 UNITS/ML VIAL IV SCH (09:00)
[2022-09-28] MEDS ORDERED: APIX2.5 PO (11:02)
[2022-09-28] MEDS ORDERED: ALBUMIN HUMAN 25% 100 ML IV SCH (11:30)
[2022-09-28 12:00] VITALS: BP 109/53
[2022-09-28 13:15] VITALS: BP 95/56
--- NOTE | 2022-09-28 16:16 | NUR ---
PT DISCHARGED TO [facility] DISCHARGE INSTRUCTION GIVEN, ID BAND AND TEL MONITOR REMOVED THE PREPERAL IV LINE LEFT IN PLACE IN REQUEST OF RECEIVING NURSE ARTURO. PT LEFT BY AMBULANCE WITH HIS SON IN HIS SIDE .[email or web address]
[2022-09-30] MEDS ORDERED: EPOETIN ALFA-EPBX 10,000 UNITS/ML VIAL IV SCH (09:00)
[2022-10-03] MEDS ORDERED: EPOETIN ALFA-EPBX 10,000 UNITS/ML VIAL IV SCH (09:00)
== END 2022-09-28 16:00 | DRG 720 ==
LOC: MED 20:07 → MTU 22:27
PROVIDERS: ADMIT Family Medicine; ATTEND Family Medicine
PROC: 5A1955Z Respiratory Ventilation, Greater than 96 Consecutive Hours (ICD-10-PCS; principal; 2022-09-21)
PROC: 5A1D70Z Performance of Urinary Filtration, Intermittent, Less than 6 Hours Per Day (ICD-10-PCS; 2022-09-22)
PROC: 5A1D70Z Performance of Urinary Filtration, Intermittent, Less than 6 Hours Per Day (ICD-10-PCS; 2022-09-25)
PROC: 5A1D70Z Performance of Urinary Filtration, Intermittent, Less than 6 Hours Per Day (ICD-10-PCS; 2022-09-26)
PROC: 5A1D70Z Performance of Urinary Filtration, Intermittent, Less than 6 Hours Per Day (ICD-10-PCS; 2022-09-28)
DX: A41.9 Sepsis, unspecified organism (principal); N17.0 Acute kidney failure with tubular necrosis; J96.21 Acute and chronic respiratory failure with hypoxia; J69.0 Pneumonitis due to inhalation of food and vomit; G93.41 Metabolic encephalopathy; E43 Unspecified severe protein-calorie malnutrition; I13.2 Hypertensive heart and chronic kidney disease with heart failure and with stage 5 chronic kidney disease, or end stage renal disease; R18.8 Other ascites; Z20.822 Contact with and (suspected) exposure to COVID-19; D63.1 Anemia in chronic kidney disease; I50.9 Heart failure, unspecified; E11.22 Type 2 diabetes mellitus with diabetic chronic kidney disease; N20.0 Calculus of kidney; N18.6 End stage renal disease; Z99.11 Dependence on respirator [ventilator] status; Z79.1 Long term (current) use of non-steroidal anti-inflammatories (NSAID); Z79.899 Other long term (current) drug therapy; Z68.24 Body mass index [BMI] 24.0-24.9, adult; Z93.0 Tracheostomy status
CPT/HCPCS: 36415; 71045; 76770; 80048; 80053; 83605; 83735; 83880; 85025; 87040; 87070; 87081; 87205; 89220; 93005; 94002; 94003; 94640; 96365; 99291; J0692; J1644; J2060; J2270; J2405; J2543; J7060; J7613; P9046; Q0092; Q5106